=== PATIENT | male | born 1970 | race Caucasian/White ===

== ENCOUNTER 2023-01-22 08:04 | Emergency (ER) | payer SELFPAY ==
[2023-01-22 08:11] VITALS: BP 117/80; PULSE 77; RESP 16; TEMP 36.6; O2SAT 99; BMI 21.5
--- NOTE | 2023-01-22 08:20 | ED.GENADULT ---
HPI - General Adult General Chief complaint: Dental/Oral Stated complaint: tooth infected Time Seen by Provider: 01/22/23 08:08 Source: patient Mode of arrival: Ambulatory History of Present Illness HPI narrative: Patient is a 52-year-old male who has had known dental issues for ?some time? however the past couple days he is noticed pain and a foul taste coming from his left upper molars. No trauma. Has not tried anything for the symptoms. Does not have a regular dentist. Related Data Previous Rx's Medication Instructions Recorded penicillin V potassium 500 mg 500 mg PO QID 7 days #28 tabs 01/22/23 tablet Allergies Allergy/AdvReac Type Severity Reaction Status Date / Time No Known Drug Allergies Allergy Verified 01/22/23 08:14 Review of Systems Constitutional Constitutional: Reports system reviewed and no additional complaints, except as documented ENT Ears, Nose, Mouth, and Throat: Reports system reviewed and no additional complaints, except as documented Integumentary/Breasts Skin/Breast: Reports system reviewed and no additional complaints, except as documented Patient History Social History Smoking Status: Current every day smoker Smoking Status: Current every day smoker alcohol intake frequency: 0-2 drinks per day Substance Use Type: does not use Exam Initial Vital Signs Initial Vital Signs: Vital Signs Temperature 97.8 F 01/22/23 08:11 Pulse Rate 77 01/22/23 08:11 Respiratory Rate 16 01/22/23 08:11 Blood Pressure 117/80 01/22/23 08:11 Pulse Oximetry 99 01/22/23 08:11 Oxygen Delivery Method Room Air 01/22/23 08:11 Const General: cooperative and comfortable HENMT Face and sinus: normal facial exam Teeth and gingiva: poor dentition and other (Loose left upper 2nd molar. No definitive abscess) Neck Neck: normal visual inspection Skin General: no rashes or lesions noted Neuro General: patient alert, patient awake and moves all extremities Extrem General: normal to inspection and capillary refill normal Course Vital Signs Vital signs: Vital Signs - 8 hr 01/22/23 08:11 Temperature 97.8 F Pulse Rate 77 Respiratory Rate 16 Blood Pressure 117/80 Pulse Oximetry 99 Oxygen Delivery Method Room Air Medical Decision Making [facility] Narrative Medical decision making narrative: Patient does have a loose left upper 2nd molar. There is no definitive abscess seen amenable to drainage here in the emergency department. Plan will be is to put him on antibiotics. He was given information for follow-up with a dental clinic. No indication for radiologic studies. No indication for admission to the hospital. Discharge Plan Departure Patient Disposition: Home Clinical Impression: Toothache, Dental abscess Instructions: Tooth Abscess Activity Restrictions/Additional Instructions: A prescription for antibiotics was sent to [facility]. I also recommend that you contact the [facility] dental clinic. They are located at [address] [place] [address]. Their phone number [phone]. You can take Tylenol/ibuprofen for discomfort. Prescriptions: New penicillin V potassium 500 mg tablet 500 mg PO QID 7 Days Qty: 28 0RF Referrals: Miscellaneous,Doctor, MD [Primary Care Provider] - Stand Alone Forms: Patient Portal/API
== END 2023-01-22 08:30 | disposition home or self-care (01) ==
PROVIDERS: Emergency Provider Emergency Medicine
DX: K04.7 Periapical abscess without sinus (principal); K08.89 Other specified disorders of teeth and supporting structures
CPT/HCPCS: 99281